=== PATIENT | male | born 1990 | race African-American/Black ===

== ENCOUNTER 2023-07-14 06:01 | Emergency (ER) | payer OTHER ==
[2023-07-14 06:31] VITALS: BP 144/83; PULSE 81; RESP 18; TEMP 100.6; BMI 26.1
[2023-07-14 08:06] LABS: THROAT:GRP A STREP NOT DETECTED (NOTDETECTED)
[2023-07-14] MEDS ORDERED: KETOROLAC TROMETHAMINE 30 MG/1 ML VIAL ONE (08:13)
[2023-07-14] MEDS ORDERED: ONDANSETRON *ODT* 4 MG TABLET ONE (08:13)
[2023-07-14] MEDS ORDERED: ACETAMINOPHEN 500 MG TABLET (FP) ONE (08:14)
[2023-07-14] MEDS: KETOROLAC TROMETHAMINE 30 MG/1 ML VIAL IM ONE (08:35)
[2023-07-14] MEDS: ACETAMINOPHEN 500 MG TABLET (FP) PO ONE (08:37)
[2023-07-14] MEDS: ONDANSETRON *ODT* 4 MG TABLET SL ONE (08:37)
== END 2023-07-14 08:40 | disposition home or self-care (01) ==
LOC: JER 06:01
PROC: 3E0233Z Introduction of Anti-inflammatory into Muscle, Percutaneous Approach (ICD-10-PCS; principal; 2023-07-14)
DX: R50.9 Fever, unspecified (principal); R05.9 Cough, unspecified; M79.10 Myalgia, unspecified site; J10.1 Influenza due to other identified influenza virus with other respiratory manifestations; Z20.822 Contact with and (suspected) exposure to COVID-19
CPT/HCPCS: 0241U-QW; 87651; 93005; 93010; 99284-25; Q0162